=== PATIENT | male | born 1980 | race Caucasian/White ===

== ENCOUNTER 2021-02-16 10:32 | Day surgery (SDC) | payer OTHER ==
[2021-02-13 10:35] LABS: ALANINE AMINOTRANSFERASE 56 U/L (12-78); ALBUMIN 4.1 g/dL (3.4-5.0); ANION GAP 4 mmol/L (5-15); CALCIUM 9.1 mg/dL (8.5-10.1); CHLORIDE 102 mmol/L (98-107); CREATININE 0.68 mg/dL (0.7-1.3)
[2021-02-13 10:37] LABS: ALKALINE PHOSPHATASE 72 U/L (45-117); BILIRUBIN,TOTAL 1.9 mg/dL (0.2-1.0); TOTAL PROTEIN 7.4 g/dL (6.4-8.2)
[2021-02-13 10:38] LABS: INTERNATIONAL NORMALIZED RATIO 1.08 (0.93-1.1); PROTHROMBIN TIME 11.5 Seconds (9.6-11.5)
[2021-02-13 11:18] LABS: BASOPHILS % (AUTO) 1 % (0-1); EOSINOPHILS % (AUTO) 1 % (1-7); LYMPHOCYTES % (AUTO) 34 % (22-44); MEAN CORPUSCULAR HEMOGLOBIN 31.9 pg (27.5-34.5); MEAN CORPUSCULAR HGB CONC 35.2 g/dL (33.2-36.2); MEAN PLATELET VOLUME 9.1 fL (7.4-10.4); MONOCYTES % (AUTO) 7 % (2-9); NEUTROPHILS % (AUTO) 59 % (42-75); PLATELET COUNT 216 x10^3/uL (130-400); RED BLOOD COUNT 5.36 x10^6/uL (4.38-5.82); RED CELL DISTRIBUTION WIDTH 13.2 % (9.4-14.8)
[2021-02-13 11:19] LABS: MD NO
[~2021-02-16] VITALS: Ht 175.3 cm; Wt 84.0 kg
[~2021-02-16 10:32] MED LIST: BUPIVACAINE/PF 0.25% ONE
[2021-02-16 11:08] VITALS: BP 133/87
[2021-02-16] MEDS ORDERED: FENTANYL PF 100 MCG/2ML ONE ×2 (11:27→13:21)
[2021-02-16] MEDS ORDERED: MIDAZOLAM 1 MG/ML, 2ML ONE (11:27)
[2021-02-16] MEDS ORDERED: PROPOFOL 10 MG/ML, 20ML ONE ×2 (11:28→13:51)
[2021-02-16] MEDS ORDERED: CEFAZOLIN 1,000 MG ONE ×2 (11:28→13:51)
[2021-02-16] MEDS ORDERED: DEXAMETHASONE 4 MG/ML, 1ML ONE ×2 (11:28→13:51)
[2021-02-16] MEDS ORDERED: ONDANSETRON 2MG/ML, 2ML ONE ×2 (11:28→13:51)
[2021-02-16] MEDS ORDERED: LACTATED RINGERS 1,000 ML IV SCH (11:30)
[2021-02-16] MEDS ORDERED: CHLORHEXIDINE 15 ML UDC PO ONE (11:30)
[2021-02-16] MEDS ORDERED: LORazepam 2 MG/ML, 1ML IVPush PRN (13:00)
[2021-02-16] MEDS ORDERED: HYDROmorphone 1 MG/ML, 1ML INJ IVPush PRN (13:00)
[2021-02-16] MEDS ORDERED: PROMETHAZINE 25 MG/ML, 1ML IVPush PRN (13:00)
[2021-02-16] MEDS ORDERED: ONDANSETRON 2MG/ML, 2ML IVPush PRN (13:00)
[2021-02-16] MEDS ORDERED: FENTANYL PF 100 MCG/2ML IV PRN (13:00)
[2021-02-16] MEDS ORDERED: METHOCARBAMOL 1,000 MG in DEXTROSE 5% 100 ML IV PRN (13:00)
[2021-02-16] MEDS ORDERED: PROMETHAZINE 25 MG SUPP PR PRN (13:00)
[2021-02-16] MEDS ORDERED: MEPERIDINE/PF 25MG/0.5ML IVPush PRN (13:00)
[2021-02-16] MEDS ORDERED: ACETAMINOPHEN 325 MG TABLET PO PRN (13:00)
[2021-02-16] MEDS ORDERED: OXYcodone 5 MG/5 ML ORAL.SOL UDC PO PRN (13:00)
== END 2021-02-16 14:50 | disposition home or self-care (01) ==
LOC: OUT 10:32
PROVIDERS: ATTEND Urology
DX: N47.1 Phimosis (principal); E11.9 Type 2 diabetes mellitus without complications; Z20.822 Contact with and (suspected) exposure to COVID-19; Z79.01 Long term (current) use of anticoagulants; Z79.84 Long term (current) use of oral hypoglycemic drugs; Z79.899 Other long term (current) drug therapy
CPT/HCPCS: 36415; 54161; 80053; 82962; 85025; 85610; 88304; 93005; J0690; J1100; J2250; J2405; J2704; J3010; J7120; U0003; U0005